=== PATIENT | female | born 1965 ===

== ENCOUNTER 2019-07-29 17:09 | Emergency (ER) | payer BC ==
[2019-07-29] MEDS ORDERED: HYDROCODONE/APAP 10/325 TAB ONE (19:32)
[2019-07-29] MEDS ORDERED: NA CHLORIDE 0.9% 500 ML ONE (20:40)
[2019-07-29] MEDS ORDERED: ETOMIDATE 20 MG/10 ML VIAL IV ONE (20:41)
[2019-07-29] MEDS ORDERED: MIDAZOLAM HCL 2 MG/2 ML INJ ONE ×2 (20:41→22:22)
--- NOTE | 2019-07-29 20:56 | RAD REPORT ---
EXAM DESCRIPTION: RAD - Wrist Left 3 View - 07/29/2019 8:31 pm CLINICAL HISTORY: Pain;Swelling;Deformity Pain COMPARISON: No comparisons FINDINGS: Distal radius fracture is seen with mild impaction. Ulnar styloid avulsion fracture also seen. No dislocation evident.
--- NOTE | 2019-07-29 22:31 | EDPHYS ---
Physician Documentation [facility] Name: Olive Sheth Age: 54 yrs Sex: Female : 1965 Arrival Date: 07/29/2019 Time: 17:15 Bed 8 Private MD: JESSY Physician Twni Live HPI: 07/28 19:21 This 54 yrs old Female presents to ER via Ambulatory with complaints of Wrist mathew Injury. 19:21 The patient or guardian reports decreased range of motion, deformity, pain, swelling, mathew tenderness. The complaints affect the left wrist diffusely. Context: The problem was sustained at home, resulted from a fall, while walking. Onset: The symptoms/episode began/occurred just prior to arrival. Modifying factors: The symptoms are alleviated by elevation, holding still, ice/coldpack to affected area, splinting, the symptoms are aggravated by movement. Associated signs and symptoms: The patient has no apparent associated signs or symptoms. Compartment Syndrome negative for numbness, tingling. The patient has not experienced similar symptoms in the past. EMERGENCY PHYSICIAN: 21:00 LMP N/A - Post-menopause rr5 Historical: - Allergies: 17:20 PENICILLINS; ll1 - PMHx: 17:20 Diabetes - NIDDM; ll1 - PSHx: 17:20 gastric bypass; breast and kidney CA; Cholecystectomy; Knee surgery; ll1 - Immunization history:: Flu vaccine is up to date. - Social history:: Smoking status: Patient denies any tobacco usage or history of. Patient/guardian denies using alcohol, street drugs, tobacco products. - Family history:: not pertinent. ROS: 19:21 Constitutional: Negative for fever, chills, and weight loss, Eyes: Negative for injury, mathwe pain, redness, and discharge, ENT: Negative for injury, pain, and discharge, Neck: Negative for injury, pain, and swelling, Cardiovascular: Negative for chest pain, palpitations, and edema, Respiratory: Negative for shortness of breath, cough, wheezing, and pleuritic chest pain, Abdomen/GI: Negative for abdominal pain, nausea, vomiting, diarrhea, and constipation, Back: Negative for injury and pain, : Negative for injury, bleeding, discharge, and swelling, Skin: Negative for injury, rash, and discoloration, Neuro: Negative for headache, weakness, numbness, tingling, and seizure, Psych: Negative for depression, anxiety, suicide ideation, homicidal ideation, and hallucinations, Allergy/Immunology: Negative for hives, rash, and allergies, Endocrine: Negative for neck swelling, polydipsia, polyuria, polyphagia, and marked weight changes, Hematologic/Lymphatic: Negative for swollen nodes, abnormal bleeding, and unusual bruising. 19:21 MS/extremity: Positive for decreased range of motion, deformity, pain, swelling, tenderness, of the lateral aspect of left wrist, medial aspect of left wrist and dorsal aspect of left wrist. Exam: 19:21 Constitutional: This is a well developed, well nourished patient who is awake, alert, mathew and in no acute distress. Head/Face: Normocephalic, atraumatic. Eyes: Pupils equal round and reactive to light, extra-ocular motions intact. Lids and lashes normal. Conjunctiva and sclera are non-icteric and not injected. Cornea within normal limits. Periorbital areas with no swelling, redness, or edema. ENT: Nares patent. No nasal discharge, no septal abnormalities noted. Tympanic membranes are normal and external auditory canals are clear. Oropharynx with no redness, swelling, or masses, exudates, or evidence of obstruction, uvula midline. Mucous membranes moist. Neck: Trachea midline, no thyromegaly or masses palpated, and no cervical lymphadenopathy. Supple, full range of motion without nuchal rigidity, or vertebral point tenderness. No Meningismus. Chest/axilla: Normal chest wall appearance and motion. Nontender with no deformity. No lesions are appreciated. Cardiovascular: Regular rate and rhythm with a normal S1 and S2. No gallops, murmurs, or rubs. Normal PMI, no JVD. No pulse deficits. Respiratory: Lungs have equal breath sounds bilaterally, clear to auscultation and percussion. No rales, rhonchi or wheezes noted. No increased work of breathing, no retractions or nasal flaring. Abdomen/GI: Soft, non-tender, with normal bowel sounds. No distension or tympany. No guarding or rebound. No evidence of tenderness throughout. Back: No spinal tenderness. No costovertebral tenderness. Full range of motion. Skin: Warm, dry with normal turgor. Normal color with no rashes, no lesions, and no evidence of cellulitis. Neuro: Awake and alert, GCS 15, oriented to person, place, time, and situation. Cranial nerves II-XII grossly intact. Motor strength 5/5 in all extremities. Sensory grossly intact. Cerebellar exam normal. Normal gait. Psych: Awake, alert, with orientation to person, place and time. Behavior, mood, and affect are within normal limits. 19:21 Musculoskeletal/extremity: Extremities: decreased ROM, deformity, pain, swelling, tenderness, ROM: limited active range of motion, limited passive range of motion, limited active range of motion due to pain, limited passive range of motion due to pain, Circulation is intact in all extremities. Sensation intact. Compartment Syndrome exam of affected extremity: is normal. DVT Exam: negative Homans' sign noted on exam, no appreciated bluish discoloration, no erythema, no increased warmth, pain, swelling, tenderness. Vital Signs: 17:17 BP 148 / 80; Pulse 70; Resp 18; Temp 98.0; Pulse Ox 100% ; Weight 67.13 kg; Height 5 ll1 ft. 1 in. (154.94 cm); Pain 8/10; 21:00 BP 142 / 78; Pulse 62; Resp 16; Pulse Ox 99% ; rr5 22:15 BP 149 / 86; Pulse 72; Resp 19; Temp 98; Pulse Ox 100% on R/A; rr5 17:17 Body Mass Index 27.96 (67.13 kg, 154.94 cm) ll1 22:15 manual reduction under conscious sedation started please see sedation form for the rr5 following VS Procedures: 20:18 Reduction: of the left wrist, using traction, Immobilized with sling, Patient tolerated mathew well. Post reduction film - reveals improved alignment. MDM: 19:11 Patient medically screened. mathew 19:26 Data reviewed: vital signs, nurses notes, radiologic studies, plain films. 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 Pulse oximetry: on room air is 100 %. Test interpretation: by ED physician or midlevel provider: plain radiologic studies. Counseling: I had a detailed discussion with the patient and/or guardian regarding: the historical points, exam findings, and any diagnostic results supporting the discharge/admit diagnosis, radiology results, the need for outpatient follow up, for definitive care, a orthopedic surgeon. 20:18 ED course: decision to reduce, conscious sedation versed and etomidate, good alignment, mathew improved, nvi, pt tolerated well and will follow up dr ignacio. 22:28 Differential diagnosis: dislocation, closed fracture. Medication response: mathew etomidate/versed sivp good sedation, reduction went well, pt recovered, nvi, splint placed by myself. no problems. 07/28 19:21 Order name: Wrist Left (3 View) XRAY [facility] 07/28 20:59 Order name: Wrist Left (3 View) XRAY: post reduction [facility] 07/28 19:21 Order name: Ice pack; Complete Time: 19:22 [facility] 07/28 19:21 Order name: Sugar Tong Forearm Splint; Complete Time: 23:19 [facility] 07/28 19:21 Order name: Sling; Complete Time: 23:19 [facility] 07/28 20:14 Order name: IV Saline Lock; Complete Time: 21:15 [facility] 07/28 20:14 Order name: Oxygen; Complete Time: 23:18 [facility] 07/28 20:14 Order name: Cardiac monitoring; Complete Time: 21:13 [facility] Administered Medications: 19:24 Drug: [place] 10 mg-325 mg 1 tabs {Note: rass 0.} Route: PO; lp1 21:00 Follow up: Response: No adverse reaction; RASS: Alert and Calm (0) rr5 20:21 Drug: Etomidate 10 mg Route: IVP; Site: right forearm; rr5 23:15 Follow up: Response: No adverse reaction rr5 21:00 Drug: NS 0.9% 500 ml Route: IV; Rate: bolus; Site: right forearm; rr5 23:00 Follow up: Response: No adverse reaction; IV Status: Completed infusion; IV Intake: rr5 500ml 22:18 Drug: Versed 2 mg Route: IVP; Site: right forearm; rr5 23:15 Follow up: Response: No adverse reaction rr5 22:20 Drug: Versed 2 mg Route: IVP; Site: right forearm; rr5 23:15 Follow up: Response: No adverse reaction rr5 23:18 Not Given (Physician Discretion): Etomidate 10 mg IVP once rr5 Disposition: 07/29/19 22:30 Discharged to Home. Impression: Colles' fracture of left radius, Displaced fracture of left ulna styloid process - reduced without complictions. - Condition is Stable. - Discharge Instructions: Colles Fracture. - Prescriptions for Tylenol- Codeine #3 300-30 mg Oral Tablet - take 2 tablet by ORAL route every 6 hours As needed; 30 tablet. - Medication Reconciliation Form, Thank You Letter, Antibiotic Education, Prescription Opioid Use form. - Follow up: Private Physician; When: 2 - 3 days; Reason: Recheck today's complaints, Continuance of care, Re-evaluation by your physician. Follow up: Marlo Ignacio; When: 2 - 3 days; Reason: Recheck today's complaints, Continuance of care, Re-evaluation by your physician. - Problem is new. - Symptoms have improved. Signatures: Dispatcher [employer] EDMS Twin Live MD MD cha Pena, Laura RN RN lp1 Tal Medina RN RN rr5 Modesto Wilson RN RN ll1 Corrections: (The following items were deleted from the chart) 23:19 22:30 07/29/2019 22:30 Discharged to Home. Impression: Colles' fracture of left radius; rr5 Displaced fracture of left ulna styloid process - reduced without complictions. Condition is Stable. Discharge Instructions: Colles Fracture. Prescriptions for Tylenol-Codeine #3 300-30 mg Oral Tablet - take 2 tablet by ORAL route every 6 hours As needed; 30 tablet. and Forms are Medication Reconciliation Form, Thank You Letter, Antibiotic Education, Prescription Opioid Use. Follow up: Private Physician; When: 2 - 3 days; Reason: Recheck today's complaints, Continuance of care, Re-evaluation by your physician. Follow up: Marol Ignacio; When: 2 - 3 days; Reason: Recheck today's complaints, Continuance of care, Re-evaluation by your physician. Problem is new. Symptoms have improved. mathew
--- NOTE | 2019-07-29 22:31 | ER ---
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 Landed on outstretched left hand. Left wrist pain since. Slight left knee pain. No blood thinners. Coronavirus screen: Proceed with normal triage. Patient denies a cough. Patient denies shortness of breath or difficulty breathing. Patient denies measured and/or subjective temperature greater than 100.4F prior to today's visit. Patient denies travel on a cruise ship or to a country the [facility] currently lists as an affected area. Patient denies contact with known and/or suspected case of COVID-19. Ebola Screen: Patient denies travel to an Ebola-affected area in the 21 days before illness onset. Initial Sepsis Screen: Does the patient meet any 2 criteria? No. Patient's initial sepsis screen is negative. Does the patient have a suspected source of infection? No. Patient's initial sepsis screen is negative. Risk Assessment: Do you want to hurt yourself or someone else? Patient reports no desire to harm self or others. Onset of symptoms was July 29, 2019. 17:17 Method Of Arrival: Ambulatory ll1 17:17 Acuity: RACHID 4 ll1 Triage Assessment: 19:30 Injury Description: Deformity sustained to left wrist is swollen. 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 - Social history:: Smoking status: Patient denies any tobacco usage or history of. Patient/guardian denies using alcohol, street drugs, tobacco products. - Family history:: not pertinent. Screenin:19 Abuse screen: Denies threats or abuse. Denies injuries from another. Nutritional lp1 screening: No deficits noted. Tuberculosis screening: No symptoms or risk factors identified. Fall Risk None identified. Assessment: 19:18 General: Appears uncomfortable, Behavior is appropriate for age. Pain: Complains of lp1 pain in dorsal aspect of left forearm and left wrist Pain currently is 8 out of 10 on a pain scale. Quality of pain is described as sharp. Neuro: No deficits noted. Cardiovascular: Patient's skin is warm and dry. Respiratory: Respiratory effort is even, unlabored. GI: No signs and/or symptoms were reported involving the gastrointestinal system. : No signs and/or symptoms were reported regarding the genitourinary system. EENT: No signs and/or symptoms were reported regarding the EENT system. Derm: Skin is pink, warm \T\ dry. Musculoskeletal: Range of motion: limited in left wrist Reports pain in dorsal aspect of left forearm. 20:25 Reassessment: Patient appears in no apparent distress at this time. Patient is alert, rr5 oriented x 3, equal unlabored respirations, skin warm/dry/pink. received from room 12 awake alert conscious and coherent not in distress GCS 15/15, complaining of left wrist pain for manual reduction under conscious sedation. 21:30 Reassessment: Patient appears in no apparent distress at this time. No changes from rr5 previously documented assessment. 22:15 Reassessment: Patient appears in no apparent distress at this time. Patient is alert, rr5 oriented x 3, equal unlabored respirations, skin warm/dry/pink. manual reduction started consent signed. 23:10 Reassessment: Patient appears in no apparent distress at this time. Patient is alert, rr5 oriented x 3, equal unlabored respirations, skin warm/dry/pink. awake alert conscious and coherent not in distress, no chest pain or reported. discharge instruction given and explained without complaints made. Patient states feeling better. Patient states symptoms have improved. Vital Signs: 17:17 BP 148 / 80; Pulse 70; Resp 18; Temp 98.0; Pulse Ox 100% ; Weight 67.13 kg; Height 5 ll1 ft. 1 in. (154.94 cm); Pain 8/10; 21:00 BP 142 / 78; Pulse 62; Resp 16; Pulse Ox 99% ; rr5 22:15 BP 149 / 86; Pulse 72; Resp 19; Temp 98; Pulse Ox 100% on R/A; rr5 17:17 Body Mass Index 27.96 (67.13 kg, 154.94 cm) ll1 22:15 manual reduction under conscious sedation started please see sedation form for the rr5 following VS ED Course: 17:15 Patient arrived in ED. bp1 17:19 Triage completed. ll1 17:20 Arm band placed on Patient notified of wait time. ll1 17:28 Splint applied. Affected limb iced. LUE splinted. PMS Intact pre and post splint ll1 application. 19:11 Twin Live MD is Attending Physician. mathew 19:17 Nataly Goldstein, RN is Primary Nurse. lp1 19:19 Patient has correct armband on for positive identification. lp1 19:19 No provider procedures requiring assistance completed. lp1 20:30 Consent for conscious sedation explained by staff, explained by physician, signed by lp1 patient. 20:31 Wrist Left (3 View) XRAY In Process Unspecified. 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 Pulse ox on. NIBP on. rr5 21:00 Inserted saline lock: 18 gauge in right forearm, using aseptic technique. rr5 22:30 Marlo Ignacio MD is Referral Physician. mathew 22:30 Assist provider with reduction of left wrist using manipulation, Set up for procedure. rr5 Performed by Twin Live MD Immobilized with wrist splint, Patient tolerated well. 22:40 Wrist Left (3 View) XRAY: post reduction In Process Unspecified. EDMS 22:59 Sling applied to left arm. rr5 23:00 IV discontinued, intact, bleeding controlled, No redness/swelling at site. Pressure rr5 dressing applied. Administered Medications: 19:24 Drug: [place] 10 mg-325 mg 1 tabs {Note: rass 0.} Route: PO; lp1 21:00 Follow up: Response: No adverse reaction; RASS: Alert and Calm (0) rr5 20:21 Drug: Etomidate 10 mg Route: IVP; Site: right forearm; rr5 23:15 Follow up: Response: No adverse reaction rr5 21:00 Drug: NS 0.9% 500 ml Route: IV; Rate: bolus; Site: right forearm; rr5 23:00 Follow up: Response: No adverse reaction; IV Status: Completed infusion; IV Intake: rr5 500ml 22:18 Drug: Versed 2 mg Route: IVP; Site: right forearm; rr5 23:15 Follow up: Response: No adverse reaction rr5 22:20 Drug: Versed 2 mg Route: IVP; Site: right forearm; rr5 23:15 Follow up: Response: No adverse reaction rr5 23:18 Not Given (Physician Discretion): Etomidate 10 mg IVP once rr5 Intake: 23:00 IV: 500ml; Total: 500ml. rr5 Outcome: 22:30 Discharge ordered by . mathew 23:15 Discharged to home via wheelchair. rr5 23:15 Condition: stable 23:15 Discharge instructions given to patient, Instructed on discharge instructions, follow up and referral plans. medication usage, Demonstrated understanding of instructions, follow-up care, medications, Prescriptions given X 1. 23:19 Patient left the ED. rr5 Signatures: Dispatcher [employer] EDMS Twin Live MD MD cha Pena, Laura RN RN lp1 Tal Medina RN RN rr5 Modesto Wilson RN RN ll1 Arlene Mejia [facility] Corrections: (The following items were deleted from the chart) 07/29 02:15 07/28 19:19 Patient did not have IV access during this emergency room visit. lp1 rr5
[2019-07-29 23:25] VITALS: TEMP 98
[2019-07-29 23:27] VITALS: BP 142/78; O2SAT 99
--- NOTE | 2019-07-30 11:26 | RAD REPORT ---
EXAM DESCRIPTION: RAD - Wrist Left 3 View - 07/29/2019 10:39 pm CLINICAL HISTORY: post reduction;Pain COMPARISON: Wrist Left 3 View dated 07/29/2019 FINDINGS: Post reduction maneuvers performed. Cast material has been placed. Distal radius fracture has been reduced back to anatomic alignment and position. Ulna styloid fracture again noted without d istraction. Remodeling from old midshaft ulna fracture noted. Delete select IMPRESSION: Distal left radius fracture has been reduced back to anatomic alignment and position.
== END 2019-07-29 23:19 | disposition home or self-care (01) ==
LOC: ER 17:09
PROC: 0PSJXZZ Reposition Left Radius, External Approach (ICD-10-PCS; principal; 2019-07-29)
PROC: 0PSLXZZ Reposition Left Ulna, External Approach (ICD-10-PCS; 2019-07-29)
DX: S52.532A Colles' fracture of left radius, initial encounter for closed fracture (principal); S52.612A Displaced fracture of left ulna styloid process, initial encounter for closed fracture; W19.XXXA Unspecified fall, initial encounter; Y93.01 Activity, walking, marching and hiking; Y92.009 Unspecified place in unspecified non-institutional (private) residence as the place of occurrence of the external cause; E11.9 Type 2 diabetes mellitus without complications; Z88.0 Allergy status to penicillin; Z85.3 Personal history of malignant neoplasm of breast; Z85.528 Personal history of other malignant neoplasm of kidney
CPT/HCPCS: 96361; 73110 ×2; 96375; 96374; 99285; 25605; J2250 ×2; J7040